=== PATIENT | female | born 1960 | race Caucasian/White ===

== ENCOUNTER 2025-04-13 00:48 | Emergency (ER) | payer MEDICARE, OTHER ==
[~2025-04-13 00:48] MED LIST: EPINEPHRINE ABBOJECT 1 MG/10 ML IV ONE; SODIUM BICARBONATE 50 MEQ/50 ML ABBOJECT IV ONE
[2025-04-13 01:01] VITALS: O2SAT 50
--- NOTE | 2025-04-13 01:01 | ERPHSYRPT ---
- History of Present Illness Source: EMS Physician History: EMS transport, EMS was called to the home as the patient apparently was vomiting bright red blood, the patient has a known history of lung cancer and and route the patient became severely dyspneic and had no spontaneous respirations, CODE STATUS at the time of evaluation was unknown Severity of Dyspnea-Max: severe Severity of Dyspnea-Current: severe - Nursing Vital Signs Nursing Vital Signs: Initial Vital Signs Pulse Rate 0 L 04/13/25 00:49 Respiratory Rate 0 L 04/13/25 00:49 O2 Sat by Pulse Oximetry 45 L 04/13/25 00:49 - Physical Exam General Appearance: other (Unresponsive) Eye Exam: other (Fixed and dilated) Respiratory Exam: other (No spontaneous respirations) Cardiovascular/Chest Exam: other (No spontaneous heart rate) Neurologic Exam: other ( verbal stimuli) Skin Exam: pale SpO2 Interpretation: hypoxic SpO2: 50 O2 Delivery: Ambu-Bag Ordered Tests: Active Orders 24 hr Category Date Time Status Standby STAT RT 04/13/25 01:44 Active - Progress Air Movement: poor Progress Note: 04/13/252338 Patient unresponsive, CPR was began as there is no CODE STATUS on the patient, she received epinephrine and bicarbonate IV push, BVM 2348 pm: The son was reached by phone and stated that he wanted CPR stopped - Departure Departure Disposition: Clinical Impression: Cardiopulmonary arrest Condition: Critical Care Time: Yes Critical Care Time(excluding separately billable procedures): Critical 30-74 mins
[2025-04-13 01:16] VITALS: PULSE 0; RESP 0
== END 2025-04-13 03:16 | disposition expired ==
LOC: ED 00:48
DX: I46.9 Cardiac arrest, cause unspecified (principal)